=== PATIENT | male | born 2005 | race Caucasian/White ===

== ENCOUNTER 2024-11-06 19:58 | Emergency (ER) | payer BC ==
[~2024-11-06] VITALS: Wt 69.9 kg
[2024-11-06] MEDS ORDERED: DERMABOND 1 EA APPL T ONE (21:10)
== END 2024-11-06 21:14 | disposition home or self-care (01) ==
LOC: ED 19:58
DX: N50.1 Vascular disorders of male genital organs (principal); F41.9 Anxiety disorder, unspecified